=== PATIENT | female | born 1970 | race Caucasian/White ===

== ENCOUNTER 2021-04-22 23:59 | Emergency (ER) | payer MEDICAID ==
[~2021-04-22] VITALS: Ht 162.6 cm; Wt 77.1 kg
[2021-04-23 00:14] VITALS: BP 157/91
[2021-04-23] MEDS ORDERED: ONDANSETRON 4 MG/2 ML VIAL IVP ONE (00:15)
[2021-04-23] MEDS ORDERED: NACL 0.9% 1,500 ML IV ONE (00:15)
--- NOTE | 2021-04-23 00:17 | NUR ---
TO LOBBY A/W BED AMBULATORY
[2021-04-23] MEDS ORDERED: ACETAMINOPHEN EXTRA STRENGTH 500 MG TAB PO ONE (00:20)
[2021-04-23 01:07] LABS: BASOPHILS % (AUTO) 0.6 % (0.0-2.0); EOSINOPHILS % (AUTO) 0.1 % (0.0-4.0); HEMATOCRIT 36.1 % (36-48); HEMOGLOBIN 11.5 g/dL (12.0-16.0); LYMPHOCYTES # (AUTO) 0.4 K/uL (2.5-16.5); LYMPHOCYTES % (AUTO) 6.9 % (20.5-51.1); MEAN CORPUSCULAR HEMOGLOBIN 22 pg (27-31); MEAN CORPUSCULAR HGB CONC 32 g/dL (33-37); MEAN CORPUSCULAR VOLUME 67.4 fL (80-94); MONOCYTES # (AUTO) 0.6 K/uL (0.8-1.0); MONOCYTES % (AUTO) 9.1 % (1.7-9.3); NEUTROPHILS # (AUTO) 5.1 K/uL (1.8-7.7); NEUTROPHILS % (AUTO) 83.3 % (42.2-75.2); PLATELET COUNT (AUTO) 346 K/uL (140-450); RED BLOOD CELL COUNT(AUTO) 5.35 MIL/uL (4.20-5.40); RED CELL DISTRIBUTION WIDTH 20.3 % (11.6-13.7); WHITE BLOOD COUNT (AUTO) 6.1 K/uL (4.8-10.8)
[2021-04-23 01:33] LABS: ALBUMIN 3.8 g/dL (3.4-5.0); ANION GAP 14.5 (8-16); CARBON DIOXIDE 24.5 mmol/L (21-32); CREATININE 0.9 mg/dL (0.6-1.3); TOTAL BILIRUBIN 0.2 mg/dL (0.0-1.0)
[2021-04-23] MEDS ORDERED: ONDA-188 SL (01:46)
--- NOTE | 2021-04-23 03:00 | NUR ---
MEDICATED PER ERMDS ORDER, TOLERATED WELL
[2021-04-23] MEDS ORDERED: ONDANSETRON 4 MG/2 ML VIAL ONE (03:37)
[2021-04-23 05:30] VITALS: BP 121/78
== END 2021-04-23 05:30 | disposition home or self-care (01) ==
LOC: MED 23:59
DX: R11.2 Nausea with vomiting, unspecified (principal); Z20.822 Contact with and (suspected) exposure to COVID-19; R19.7 Diarrhea, unspecified; R05.9 Cough, unspecified; Z79.899 Other long term (current) drug therapy
CPT/HCPCS: 36415; 80053; 85025; 87426; 96361; 96374; 99283; J2405; J7030